=== PATIENT | female | born 1985 | race Caucasian/White ===

== ENCOUNTER 2024-11-12 06:40 | Emergency (ER) | payer SELFPAY ==
[~2024-11-12] VITALS: Ht 162.6 cm; Wt 68.0 kg
[2024-11-12 06:45] VITALS: O2SAT 100
[2024-11-12] MEDS: SODIUM CHLORIDE 0.9% 1,000 ML IV ONE (07:00)
[2024-11-12 07:35] LABS: BASOPHILS % 0.3 % (0.0-2.0); EOSINOPHILS % 0.8 % (0.0-5.0); HEMATOCRIT. 35.1 % (36.0-48.0); HEMOGLOBIN. 11.6 g/dL (12.0-16.0); LYMPHOCYTES % 18.0 % (20.0-50.0); MEAN PLATELET VOLUME 9.0 fl (7.4-10.4); MONOCYTES % 5.5 % (2.0-8.0); NEUTROPHILS % 75.4 % (40.0-76.0); PLATELET 247 x1000/uL (130-400); RED BLOOD CELL COUNT 4.15 mill/uL (4.2-5.4); RED CELL DISTRIBUTION WIDTH 16.9 % (11.6-14.6)
[2024-11-12 07:53] LABS: CREATININE 0.6 mg/dL (0.6-1.0); UREA NITROGEN BLOOD 7 mg/dL (9-23)
[2024-11-12 07:54] LABS: TROPONIN I HIGH SENSITIVITY < 4 ng/L (3.0-34)
[2024-11-12 07:55] LABS: ASPARTATE AMINOTRANSFERASE 17 IU/L (<34); BILIRUBIN DIRECT < 0.1 mg/dL (<=3.0); BILIRUBIN TOTAL 0.4 mg/dL (0.1-1.0); PROTEIN TOTAL 6.3 g/dL (6.0-8.3)
[2024-11-12 08:19] LABS: HCG SCREEN POSITIVE
[2024-11-12 09:57] VITALS: TEMP 37
[2024-11-12 09:57] LABS: TROPONIN I HIGH SENSITIVITY < 4 ng/L (3.0-34)
[2024-11-12 10:35] VITALS: BP 108/58; PULSE 58; RESP 12; O2SAT 100
== END 2024-11-12 10:41 | disposition home or self-care (01) ==
LOC: ER 06:40 → CANBEDREQ 09:43 → ER 10:41
DX: O99.352 Diseases of the nervous system complicating pregnancy, second trimester (principal); R51.9 Headache, unspecified; R07.9 Chest pain, unspecified; Z3A.18 18 weeks gestation of pregnancy
CPT/HCPCS: 99285; 96360; 70450; 76805; 71045; 80076; 80048; 84703; 83880; 85025; 84484; 36415; 93005; J7030